=== PATIENT | female | born 1930 | race Caucasian/White ===

== ENCOUNTER 2016-07-11 09:38 | Emergency (ER) | payer MEDICARE, BC ==
--- NOTE | ~2016-07-11 | EKG ---
PATIENT: FARZAD REICH UNIT #: [id number] Ventricular Rate: 52 BPM Atrial Rate: 52 BPM P-R Interval: 142 ms QRS Duration: 84 ms Q-T Interval: 454 ms QTC Calculation(Bezet): 422 ms P [place]: 42 degrees Calculated R [place]: -30 degrees Calculated T [place]: 9 degrees Diagnosis Line: Sinus bradycardia Diagnosis Line: Left axis deviation Diagnosis Line: Abnormal ECG Diagnosis Line: No previous ECGs available Diagnosis Line: Confirmed by DIANE LAZCANO MD ([id number]) on 07/14/2016 Diagnosis Line: 11:11:32 PM INTERPRETING MD: NENO LUO
[~2016-07-11 09:38] MED LIST: ATARAX PO; BENTYL PO; BENTYL20 MG PO; FLAGYL PO; LEVOFLOXACIN500 MG; NEXIUM PO; NO MEDICATIONS; PREDNISONE50 MG PO; PYRIDIUM; REGLAN10 MG PO; ZOFRAN ODT PO; ZOFRAN ODT4 MG; ZOFRAN ODT4 MG PO; ZOFRAN PO
[2016-07-11 09:49] LABS: BASOPHIL# 0.1 X10e3 (0-0.3); BASOPHIL% 0.8 % (0-2.5); EOSINOPHIL# 0.1 X10e3 (0-0.7); EOSINOPHIL% 0.7 % (0.0-7.0); HEMATOCRIT 42.5 % (35.0-45.0); LYMPHOCYTE% 11.7 % (17.0-45.0); MEAN CELL VOLUME 90.3 FL (83-96); MEAN CORPUSCULAR HEMOGLOBIN 29.7 PG (28-34); MEAN CORPUSCULAR HGB CONC 32.9 g/dL (30-36); MEAN PLATELET VOLUME 7.7 FL (6.5-11.5); MONOCYTE# 0.6 X10e3 (0-1.0); MONOCYTE% 7.2 % (3.0-12.0); NEUTROPHIL# 6.5 X10e3 (1.5-7.1); NEUTROPHIL% 79.6 % (40-75); PLATELET COUNT 274 X10e3 (140-420); RED BLOOD COUNT 4.71 X10e (3.90-5.30); RED CELL DISTRIBUTION WIDTH 13.5 % (11.0-15.5); WHITE BLOOD COUNT 8.1 X10e3 (4.0-10.5)
[2016-07-11 09:55] LABS: DIFF IND NO
[2016-07-11 10:07] LABS: POC - CKMB 1.1 ng/mL (0.0-7.9); POC - MYOGLOBIN 65.6 ng/mL (0.0-169.0); POC - TROPONIN <0.05 ng/mL (<=0.05)
[2016-07-11 10:10] LABS: ALBUMIN SERUM 4.1 g/dL (3.5-5.0); BILIRUBIN, DIRECT 0.1 mg/dL (0.0-0.2); BILIRUBIN,INDIRECT 0.8 mg/dL (0.0-0.9); BILIRUBIN,TOTAL 0.9 mg/dL (0.2-2.0); BUN/CREATININE RATIO 17.5; CALCIUM SERUM 9.1 mg/dL (8.4-10.2); CREATININE SERUM 0.8 mg/dL (0.6-1.4); GLOM FILT RATE Estimated 67.3 mL/min (>60); POTASSIUM 3.7 mmol/L (3.5-5.1); PROTEIN TOTAL SERUM 7.3 g/dL (6.0-8.3)
[2016-07-11 11:09] LABS: URINE APPEARANCE CLEAR; URINE BILIRUBIN NEG (NEG); URINE BLOOD NEG (NEG); URINE COLOR YELLOW; URINE GLUCOSE NEG (NORM); URINE KETONE NEG (NEG); URINE NITRATE NEG (NEG); URINE PROTEIN NEG (NEG); URINE SPECIFIC GRAVITY <=1.005 (1.003-1.035); URINE UROBILINOGEN 0.2 MG/DL (NORM)
[2016-07-11 11:11] LABS: MICRO INDICATED? NO; URINE LEUKOCYTE ESTERASE NEG (NEG)
== END 2016-07-11 11:51 | disposition home or self-care (01) ==
LOC: SED 09:38
PROVIDERS: Emergency Medicine
DX: R11.0 Nausea (principal); F41.9 Anxiety disorder, unspecified; Z90.710 Acquired absence of both cervix and uterus; Z90.89 Acquired absence of other organs; Z79.899 Other long term (current) drug therapy; Z88.0 Allergy status to penicillin; Z88.2 Allergy status to sulfonamides; Z88.8 Allergy status to other drugs, medicaments and biological substances
CPT/HCPCS: 36415; 80048; 80076; 81003; 82150; 82553; 83605; 83690; 83874; 84484; 85025; 93005; 96374; 96375; 96376; 99284; J2270; J2405

== ENCOUNTER 2016-07-18 11:31 | Emergency (ER) | payer MEDICARE, BC ==
--- NOTE | ~2016-07-18 | CT2 ---
[facility] A Service of [facility] / [facility] RADIOLOGY TEXT RESULTS PATIENT: FARZAD REICH LOCATION: [facility] : 31 UNIT #: [id number] AGE: [address]: Titus Dasilva MD SEX: F ORDER DR: [id number] [facility] [address] [place], [place] [address] [id number] E MR#: [id number] #: [id number] NAME: FARZAD REICH. : 1930 SEX: F STUDY DATE/TIME: 07/18/2016 13:22 UNIT: [facility] ROOM: STUDY DESCRIPTION: CT Abd and Pelv W Cont Attending Physician: Titus Dasilva M.D. Ordering Physician: Titus Dasilva M.D. Primary Care Physician: Lavon Montana M.D. MEDICAL IMAGING REPORT This report is preliminary unless electronic signature is present EXAM CT abdomen and pelvis, 07/18/2016. HISTORY Weakness, back and rib pain, nausea. Prior history includes appendectomy, cholecystectomy, hysterectomy, hernia surgery, diverticulitis, anxiety. TECHNIQUE CT abdomen and pelvis performed with intravenous administration of 100 mL Isovue-370. Enteric contrast also administered. This CT exam was performed with one or more of the following radiation dose reduction techniques: automatic exposure control, adjustment of mA and/or kV according to patient size, and iterative reconstruction. COMPARISON Noncontrast enhanced examination 04/23/2016. FINDINGS Stable mild cardiac enlargement. No acute disease at the lung bases. Liver unremarkable. Status post cholecystectomy. Spleen, pancreas, adrenal glands unremarkable. Moderate to marked bilateral pyelocaliectasis. No change from studies dating to November 2015. No perinephric inflammatory change. No fluid collection. No renal calculi. Ureters normal in caliber. Appearance favors chronic ureteropelvic junction stenosis. CT PELVIS: No inguinal adenopathy. Status post hysterectomy. No suspicious adnexal structures are seen. Appears to be some laxity of the pelvic floor. No pelvic or retroperitoneal adenopathy. The distal esophagus, stomach, small bowel unremarkable. Status post appendectomy by history. Colon is notable for extensive left hemicolon diverticulosis. [facility] A Service of [facility] RADIOLOGY TEXT RESULTS PATIENT: FARZAD REICH LOCATION: [facility] : 31 UNIT #: [id number] AGE: [address]: Titus Dasilva MD SEX: F ORDER DR: There is mild mural thickening in the sigmoid colon without adjacent acute inflammatory change. No free air or abscess. The mural thickening is more pronounced than on the prior examination. Similar in appearance to an examination dated 11/24/2015. This might simply be a reflection of muscular hypertrophy in the context of marked diverticulosis. Possibility of very mild diverticulitis could be considered. Weight should be given the clinical assessment. The vascular structures show atherosclerotic arterial calcifications. The aorta is somewhat tortuous in keeping with the patient's thoracolumbar scoliosis. These are stable findings. Degenerative changes in the spine. No acute appearing abnormality. IMPRESSION 1. The patient has extensive left hemicolon diverticulosis most pronounced in the sigmoid colon. No focally inflamed diverticulum is seen. There is no pericolonic inflammatory change, fluid collection, free air, or abscess. However, the sigmoid colon shows mild generalized mural prominence, again without associated adjacent inflammatory change. This is more pronounced than in April 2016 but similar to a study dated 11/24/2015. The mild prominence could be a reflection of muscular hypertrophy in the context of extensive diverticulosis. Possibility of very mild diverticulitis could be considered in the appropriate clinical setting. Weight should be given the clinical assessment. No eccentric focal mass lesion is seen. Colon and small bowel otherwise unremarkable. 2. Stable appearance of moderate to marked bilateral pyelocaliectasis without ureteral dilatation and with no acute perinephric findings. No change from 2016. 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 3. Status post cholecystectomy. 4. Mild cardiac enlargement. Stable. 5. Scoliosis. 6. Pelvic floor laxity. 7. Status post hysterectomy. Dictated by... Brent Robins M.D. THIS IS AN ELECTRONICALLY VERIFIED REPORT Brent Robins M.D. at 07/19/2016 1:54 PM MIK/funmilayo TD: 07/18/2016 14:19 JOB #: [id number] MEDICAL IMAGING REPORT Page 1 of 1 COPY
--- NOTE | ~2016-07-18 | EKG ---
PATIENT: FARZAD REICH UNIT #: [id number] Ventricular Rate: 48 BPM Atrial Rate: 48 BPM P-R Interval: 166 ms QRS Duration: 84 ms Q-T Interval: 460 ms QTC Calculation(Bezet): 410 ms P [place]: 56 degrees Calculated R [place]: -21 degrees Calculated T [place]: 23 degrees Diagnosis Line: Sinus bradycardia Diagnosis Line: Otherwise normal ECG Diagnosis Line: When compared with ECG of 11-JUL-2016 09:44, Diagnosis Line: No significant change was found Diagnosis Line: Confirmed by DIANE LAZCANO MD ([id number]) on 07/18/2016 Diagnosis Line: 4:42:43 PM INTERPRETING MD: NENO LUO
[2016-07-18 11:49] LABS: POC - CKMB <1.0 ng/mL (0.0-7.9); POC - TROPONIN <0.05 ng/mL (<=0.05)
[2016-07-18 11:54] LABS: BASOPHIL# 0.1 X10e3 (0-0.3); EOSINOPHIL% 0.7 % (0.0-7.0); HEMATOCRIT 42.4 % (35.0-45.0); HEMOGLOBIN 13.8 gm/dL (12.0-16.0); LYMPHOCYTE# 1.1 X10e3 (1.0-3.5); LYMPHOCYTE% 17.4 % (17.0-45.0); MEAN CELL VOLUME 90.1 FL (83-96); MEAN CORPUSCULAR HEMOGLOBIN 29.4 PG (28-34); MEAN CORPUSCULAR HGB CONC 32.6 g/dL (30-36); MONOCYTE# 0.5 X10e3 (0-1.0); MONOCYTE% 8.1 % (3.0-12.0); NEUTROPHIL# 4.6 X10e3 (1.5-7.1); NEUTROPHIL% 72.8 % (40-75); PLATELET COUNT 259 X10e3 (140-420); RED BLOOD COUNT 4.71 X10e (3.90-5.30); RED CELL DISTRIBUTION WIDTH 13.9 % (11.0-15.5); WHITE BLOOD COUNT 6.4 X10e3 (4.0-10.5)
[2016-07-18 12:07] LABS: DIFF IND NO
[2016-07-18 12:33] LABS: ALBUMIN SERUM 3.9 g/dL (3.5-5.0); BILIRUBIN,TOTAL 0.8 mg/dL (0.2-2.0); CALCIUM SERUM 9.2 mg/dL (8.4-10.2); CREATININE SERUM 0.7 mg/dL (0.6-1.4); POTASSIUM 3.7 mmol/L (3.5-5.1); PROTEIN TOTAL SERUM 7.2 g/dL (6.0-8.3)
== END 2016-07-18 14:25 | disposition home or self-care (01) ==
LOC: CED 11:31
PROVIDERS: Emergency Medicine
DX: R19.7 Diarrhea, unspecified (principal); R53.83 Other fatigue; F41.9 Anxiety disorder, unspecified; Z90.49 Acquired absence of other specified parts of digestive tract; Z90.710 Acquired absence of both cervix and uterus; Z88.0 Allergy status to penicillin; Z88.2 Allergy status to sulfonamides; Z88.6 Allergy status to analgesic agent; Z88.8 Allergy status to other drugs, medicaments and biological substances
CPT/HCPCS: 36415; 74177; 80053; 82150; 82553; 83690; 84484; 85025; 93005; 96361; 96374; 96375; 99284; C9113; J2405; Q9967

== ENCOUNTER 2016-10-09 08:20 | Emergency (ER) | payer MEDICARE, BC ==
--- NOTE | ~2016-10-09 | CT2 ---
[facility] A Service of [facility] & [facility] RADIOLOGY TEXT RESULTS PATIENT: FARZAD REICH LOCATION: SED : 31 UNIT #: [id number] AGE: [address]: Titus Dasilva MD SEX: F ORDER DR: [id number] [place] [id number] E MR#: [id number] Acc #: [id number] NAME: FARZAD REICH : 1930 SEX: F STUDY DATE/TIME: 10/09/2016 9:57 UNIT: SED ROOM: STUDY DESCRIPTION: CT Abd and Pelv W Cont Attending Physician: Titus Dasilva M.D. Ordering Physician: Titus Dasilva M.D. Primary Care Physician: Lavon Montana M.D. MEDICAL IMAGING REPORT This report is preliminary unless electronic signature is present. EXAM CT abdomen and pelvis HISTORY Left-sided abdominal pain and nausea, diarrhea for [address] of the abdomen and pelvis with p.o. and IV contrast (100 mL Isovue 370 IV contrast). Coronal and sagittal reconstructions were obtained. This CT exam was performed with one or more of the following radiation dose reduction techniques: automatic exposure control, adjustment of mA and/or kV according to patient size, and iterative reconstruction. COMPARISON CT abdomen and pelvis 07/18/216 FINDINGS The descending thoracic aorta is tortuous. There are some linear scarring or atelectasis in both lung bases. The patient has background emphysema. The solid abdominal organs are unchanged. There is mild atrophy of the pancreas. Multiple parapelvic cysts in the kidneys are similar to the prior study. The bowel is not dilated. There has previously been prior Ana fundoplication at the EG junction. There is extensive colonic diverticulosis in the left side of the colon. There is a small supraumbilical anterior abdominal hernia along the midline. This is presumably an incisional hernia. No complicating features identified. The gallbladder is surgically absent. The abdominal aorta is normal in caliber. Pelvis: Bladder is unremarkable. No enlarged pelvic or inguinal lymph nodes. The ovaries are either atrophic or surgically absent. The uterus STS. [facility] A Service of [facility] & [facility] RADIOLOGY TEXT RESULTS PATIENT: FARZAD REICH LOCATION: [facility] : 31 UNIT #: [id number] AGE: [address]: Titus Dasilva MD SEX: F ORDER DR: is surgically absent. IMPRESSION 1. No acute findings in the abdomen or pelvis. 2. Extensive chronic diverticulosis. No evidence of an acute diverticulitis. 3. Small midline incisional hernia without complicating features. Dictated by... Mike Pichardo M.D. THIS IS AN ELECTRONICALLY VERIFIED REPORT Mike Pichardo M.D. at 10/09/2016 2:27 PM C/andrew TD: 10/09/2016 13:12 JOB #: [id number] MEDICAL IMAGING REPORT Page 1 of 1
[2016-10-09 09:04] LABS: URINE APPEARANCE CLEAR; URINE BILIRUBIN NEG (NEG); URINE COLOR YELLOW; URINE GLUCOSE NEG (NORM); URINE KETONE NEG (NEG); URINE LEUKOCYTE ESTERASE NEG (NEG); URINE NITRATE NEG (NEG); URINE PROTEIN NEG (NEG); URINE SPECIFIC GRAVITY <=1.005 (1.003-1.035); URINE UROBILINOGEN 0.2 MG/DL (NORM)
[2016-10-09 09:08] LABS: BASOPHIL# 0.1 X10e3 (0-0.3); BASOPHIL% 1.4 % (0-2.5); EOSINOPHIL# 0.1 X10e3 (0-0.7); EOSINOPHIL% 1.3 % (0.0-7.0); HEMATOCRIT 38.5 % (35.0-45.0); LYMPHOCYTE# 0.7 X10e3 (1.0-3.5); LYMPHOCYTE% 13.2 % (17.0-45.0); MEAN CELL VOLUME 88.7 FL (83-96); MEAN CORPUSCULAR HEMOGLOBIN 29.9 PG (28-34); MEAN CORPUSCULAR HGB CONC 33.7 g/dL (30-36); MEAN PLATELET VOLUME 7.7 FL (6.5-11.5); MONOCYTE# 0.5 X10e3 (0-1.0); NEUTROPHIL# 3.9 X10e3 (1.5-7.1); NEUTROPHIL% 75.1 % (40-75); PLATELET COUNT 227 X10e3 (140-420); RED BLOOD COUNT 4.34 X10e (3.90-5.30); RED CELL DISTRIBUTION WIDTH 13.6 % (11.0-15.5); WHITE BLOOD COUNT 5.1 X10e3 (4.0-10.5)
[2016-10-09 09:19] LABS: DIFF IND NO
[2016-10-09 09:20] LABS: MICRO INDICATED? NO; URINE BLOOD NEG (NEG)
[2016-10-09 09:35] LABS: ALBUMIN SERUM 3.7 g/dL (3.5-5.0); BILIRUBIN, DIRECT 0.1 mg/dL (0.0-0.2); BILIRUBIN,INDIRECT 0.7 mg/dL (0.0-0.9); BILIRUBIN,TOTAL 0.8 mg/dL (0.2-2.0); CALCIUM SERUM 8.6 mg/dL (8.4-10.2); CREATININE SERUM 0.7 mg/dL (0.6-1.4); POTASSIUM 3.4 mmol/L (3.5-5.1); PROTEIN TOTAL SERUM 6.7 g/dL (6.0-8.3)
== END 2016-10-09 10:37 | disposition home or self-care (01) ==
LOC: SED 08:20
PROVIDERS: Emergency Medicine
DX: R10.12 Left upper quadrant pain (principal); R10.32 Left lower quadrant pain; F41.9 Anxiety disorder, unspecified; Z90.49 Acquired absence of other specified parts of digestive tract; Z90.710 Acquired absence of both cervix and uterus; Z88.0 Allergy status to penicillin; Z88.2 Allergy status to sulfonamides; Z88.8 Allergy status to other drugs, medicaments and biological substances
CPT/HCPCS: 36415; 74177; 80048; 80076; 81003; 82150; 83690; 85025; 96361; 96374; 96375; 99284; J2405; J3010; Q9967

== ENCOUNTER 2016-11-22 07:20 | Emergency (ER) | payer MEDICARE, BC ==
--- NOTE | ~2016-11-22 | EKG ---
PATIENT: FARZAD REICH UNIT #: [id number] Ventricular Rate: 66 BPM Atrial Rate: 66 BPM P-R Interval: 144 ms QRS Duration: 82 ms Q-T Interval: 422 ms QTC Calculation(Bezet): 442 ms P [place]: 74 degrees Calculated R [place]: -32 degrees Calculated T [place]: 19 degrees Diagnosis Line: Normal sinus rhythm Diagnosis Line: Left axis deviation Diagnosis Line: Abnormal ECG Diagnosis Line: When compared with ECG of 18-JUL-2016 10:57, Diagnosis Line: No significant change was found Diagnosis Line: Confirmed by REMEDIOS RAMOS MD ([id number]) on Diagnosis Line: 11/24/2016 4:04:30 PM INTERPRETING MD: RICHARD LUO
--- NOTE | ~2016-11-22 | CT2 ---
[facility] A Service of [facility] / [facility] RADIOLOGY TEXT RESULTS PATIENT: FARZAD REICH LOCATION: SED : 31 UNIT #: [id number] AGE: [address]: Ashley Carter MD SEX: F ORDER DR: [id number] [address] [address] [id number] E MR#: [id number] Acc #: [id number] NAME: FARZAD REICH : 1930 SEX: F STUDY DATE/TIME: 11/22/2016 9:34 UNIT: SED ROOM: STUDY DESCRIPTION: CT Abd and Pelv W Cont Attending Physician: Ashley Carter M.D. Ordering Physician: Ashley Carter M.D. Primary Care Physician: Lavon Montana M.D. MEDICAL IMAGING REPORT This report is preliminary unless electronic signature is present. EXAM CT of the abdomen and pelvis with contrast INDICATION Abdominal cramping, nausea, vomiting and diarrhea for a few days. TECHNIQUE Axial CT images were obtained from the dome of the diaphragm through the symphysis pubis following the administration of oral and intravenous contrast material. This CT examination was performed with one or more of the following radiation dose reduction techniques: automatic exposure control, adjustment of mA and/or kV according to patient size, and iterative reconstruction. FINDINGS Images through the lung bases demonstrate some tree-in-bud infiltrate within the right middle lobe new when compared to the October 09, 2016 examination. There is also some scarring seen within the lingula. No focal hepatic lesions are seen. Gallbladder is surgically absent. This patient has some apparent wall thickening at the GE junction of uncertain clinical significance. This may simply reflect some prominent folds at the cardia. It appears unchanged when compared to exams dating back to November 2015 so I suspect it is probably a benign finding. Certainly correlation with any evidence of gastritis/esophagitis is suggested. Patient's thoracic aorta is very tortuous. Adrenal glands appear unremarkable. Pancreas is mildly atrophic. A few scattered granulomata are seen within the spleen. Fullness is identified within the collecting systems bilaterally. It is unclear if this appearance is related to multiple parapelvic cysts or to hydronephrosis related to bilateral UPJ obstructions. However, the appearance has been stable since at least November 2015 and the distal ureters are certainly decompressed. Uterus is surgically absent. Urinary bladder appears unremarkable. This [facility] A Service of [facility] RADIOLOGY TEXT RESULTS PATIENT: FARZAD REICH LOCATION: [facility] : 31 UNIT #: [id number] AGE: [address]: Ashley Carter MD SEX: F ORDER DR: patient does have colonic diverticulosis without any convincing evidence of diverticulitis. There is lumbar scoliosis with convexity to the left. No free fluid or adenopathy is seen within the pelvis. There is no evidence of mechanical bowel obstruction. Patient does have a complex fat-containing ventral hernia. Review of bony windows demonstrates osteopenia and again lumbar scoliosis with convexity to the left. There is some stenosis noted at the origin of the celiac axis which is probably moderate in severity. IMPRESSION 1. No definite acute intraabdominal or intrapelvic process is seen. This patient is again noted to have fullness within the renal collecting systems bilaterally which I think may actually reflect bilateral parapelvic cysts, although certainly hydronephrosis related to bilateral UPJ obstructions is not excluded. Of note, this finding has been present since exams dating back to at least November 2015 and has not progressed. 2. Fullness noted at the GE junction may reflect some redundant folds of the cardia. Certainly correlation with any history of gastritis or esophagitis is suggested. Again this appearance is stable when compared to November 2015. 3. Colonic diverticulosis without any evidence of diverticulitis. 4. Tree-in-bud infiltrate identified within the right middle lobe new when compared to September 2016 and favored to be infectious or inflammatory in nature. Please see the body of the report for any other additional incidental findings. Dictated by... Yesenia House M.D. THIS IS AN ELECTRONICALLY VERIFIED REPORT Yesenia House M.D. at 11/22/2016 2:07 PM AFF/quynh TD: 11/22/2016 12:07 JOB #: [id number] MEDICAL IMAGING REPORT Page 1 of 1
[2016-11-22] MEDS ORDERED: ZOFRAN PO (07:27)
[2016-11-22] MEDS ORDERED: DIARRHEA MEDICATION PO (07:28)
[2016-11-22 07:58] LABS: URINE SOURCE CLEAN CATCH
[2016-11-22 08:03] LABS: BASOPHIL# 0.1 X10e3 (0-0.3); EOSINOPHIL# 0.1 X10e3 (0-0.7); EOSINOPHIL% 1.9 % (0.0-7.0); LYMPHOCYTE# 1.2 X10e3 (1.0-3.5); LYMPHOCYTE% 19.8 % (17.0-45.0); MEAN CELL VOLUME 89.9 FL (83-96); MEAN CORPUSCULAR HGB CONC 33.4 g/dL (30-36); MEAN PLATELET VOLUME 7.7 FL (6.5-11.5); MONOCYTE# 0.6 X10e3 (0-1.0); MONOCYTE% 9.2 % (3.0-12.0); NEUTROPHIL# 4.2 X10e3 (1.5-7.1); NEUTROPHIL% 68.1 % (40-75); PLATELET COUNT 250 X10e3 (140-420); RED BLOOD COUNT 4.67 X10e (3.90-5.30); WHITE BLOOD COUNT 6.2 X10e3 (4.0-10.5)
[2016-11-22 08:03] LABS: URINE APPEARANCE CLEAR; URINE BILIRUBIN NEG (NEG); URINE BLOOD NEG (NEG); URINE COLOR YELLOW; URINE GLUCOSE NEG (NORM); URINE KETONE NEG (NEG); URINE LEUKOCYTE ESTERASE TRACE (NEG); URINE NITRATE NEG (NEG); URINE PROTEIN NEG (NEG); URINE SPECIFIC GRAVITY <=1.005 (1.003-1.035); URINE UROBILINOGEN 0.2 MG/DL (NORM)
[2016-11-22 08:04] LABS: DIFF IND NO
[2016-11-22 08:11] LABS: POC - CKMB <1.0 ng/mL (0.0-7.9); POC - TROPONIN <0.05 ng/mL (<=0.05)
[2016-11-22 08:19] LABS: ALBUMIN SERUM 3.8 g/dL (3.5-5.0); ALKALINE PHOSPHATASE 68 U/L (32-92); ALT (SGPT) 14 U/L (10-40); AMYLASE 18 U/L (0-46); AST (SGOT) 19 U/L (10-42); BILIRUBIN,TOTAL 0.8 mg/dL (0.2-2.0); BLOOD UREA NITROGEN 11 mg/dL (9-23); BUN/CREATININE RATIO 13.75; CALCIUM SERUM 8.9 mg/dL (8.4-10.2); CARBON DIOXIDE 28 mmol/L (22-31); CHLORIDE 106 mmol/L (100-111); CREATININE SERUM 0.8 mg/dL (0.6-1.4); GLOM FILT RATE Estimated 67.3 mL/min (>60); GLUCOSE FASTING 95 mg/dL (70-110); LIPASE 27 U/L (22-51); POTASSIUM 3.5 mmol/L (3.5-5.1); PROTEIN TOTAL SERUM 6.7 g/dL (6.0-8.3); SODIUM 141 mmol/L (135-145)
[2016-11-22 08:29] LABS: MICRO INDICATED? YES
[2016-11-22 08:29] LABS: BILIRUBIN, DIRECT <0.1 mg/dL (0.0-0.2); BILIRUBIN,INDIRECT 0.7 mg/dL (0.0-0.9)
[2016-11-22 08:32] LABS: CULTURE INDICATED? NO; URINE BACTERIA NEG (NEG); URINE RBC 0-2 /[HPF] (0-2); URINE WBC 0-2 /[HPF] (0-5)
[2016-11-22 09:55] LABS: POC - CKMB <1.0 ng/mL (0.0-7.9); POC - TROPONIN <0.05 ng/mL (<=0.05)
== END 2016-11-22 11:02 | disposition home or self-care (01) ==
LOC: SED 07:20
PROVIDERS: Student in an Organized Health Care Education/Training Program
DX: K52.9 Noninfective gastroenteritis and colitis, unspecified (principal); R53.1 Weakness; Z90.710 Acquired absence of both cervix and uterus; Z88.0 Allergy status to penicillin; Z88.8 Allergy status to other drugs, medicaments and biological substances; M54.9 Dorsalgia, unspecified; M89.29 Other disorders of bone development and growth, multiple sites; Z98.890 Other specified postprocedural states; Z88.2 Allergy status to sulfonamides
CPT/HCPCS: 36415; 74177; 80048; 80076; 81003; 82150; 82553; 83690; 83880; 84484; 85025; 93005; 96361; 96374; 96375; 99284; C9113; J2405; Q9967

== ENCOUNTER 2016-12-22 10:10 | Emergency (ER) | payer MEDICARE, BC ==
--- NOTE | ~2016-12-22 | CT4 ---
[facility] A Service [facility] RADIOLOGY TEXT RESULTS PATIENT: FARZAD REICH LOCATION: [facility] : 32 UNIT #: [id number] AGE: [address]: Ashley Carter MD SEX: F ORDER DR: [id number] [place] [id number] E MR#: [id number] Acc #: [id number] NAME: FARZAD REICH : 1930 SEX: F STUDY DATE/TIME: 12/22/2016 11:16 UNIT: SED ROOM: STUDY DESCRIPTION: CT Abd and Pelv Wo Cont Attending Physician: Ashley Carter M.D. Ordering Physician: Ashley Carter M.D. Primary Care Physician: Lavon Montana M.D. MEDICAL IMAGING REPORT This report is preliminary unless electronic signature is present. EXAM CT abdomen and pelvis without contrast INDICATION Nausea, abdominal pain and diarrhea for [address] of the abdomen and pelvis was performed without contrast. Coronal and sagittal reformatted images obtained. This CT exam was performed with one or more of the following radiation dose reduction techniques: automatic exposure control, adjustment of mA and/or kV according to patient size, and iterative reconstruction. COMPARISON 11/22/2016 FINDINGS The lung bases are clear. The liver is unremarkable. Cholecystectomy. The spleen is unremarkable. Stable bilateral renal parapelvic cysts versus chronic UPJ obstructions. The adrenal glands are unremarkable. The pancreas is unremarkable. Stable fat-containing ventral abdominal wall hernia. No evidence for bowel obstruction. PELVIS: Extensive diverticulosis of the sigmoid colon. No definite acute diverticulitis, however, mild diverticulitis cannot entirely be excluded due to the extent of the diverticulosis. Appendectomy. No free fluid. Bone windows unremarkable. IMPRESSION 1. There is extensive sigmoid diverticulosis. There is no obvious CT finding of acute diverticulitis. However, CT occult diverticulitis cannot entirely be excluded due to the extent of the diverticulosis. [facility] A Service [facility] RADIOLOGY TEXT RESULTS PATIENT: FARZAD REICH LOCATION: [facility] #: [id number] : 32 UNIT #: [id number] AGE: [address]: Ashley Carter MD SEX: F ORDER DR: 2. No evidence for bowel obstruction. 3. No evidence for free fluid or fluid collection. 4. Cholecystectomy and appendectomy. Dictated by... Godfrey Redding M.D. THIS IS AN ELECTRONICALLY VERIFIED REPORT Godfrey Redding M.D. at 12/23/2016 7:09 AM SHAUN/lyly TD: 12/22/2016 11:41 JOB #: [id number] MEDICAL IMAGING REPORT Page 1 of 1
[~2016-12-22 10:10] MED LIST changes: +DIARRHEA MEDICATION PO
[2016-12-22] MEDS ORDERED: BENTYL10 MG PO (10:12)
[2016-12-22 10:43] LABS: BASOPHIL% 0.7 % (0-2.5); EOSINOPHIL% 0.7 % (0.0-7.0); HEMATOCRIT 41.4 % (35.0-45.0); HEMOGLOBIN 14.3 gm/dL (12.0-16.0); LYMPHOCYTE# 0.9 X10e3 (1.0-3.5); LYMPHOCYTE% 13.4 % (17.0-45.0); MEAN CELL VOLUME 89.3 FL (83-96); MEAN CORPUSCULAR HEMOGLOBIN 30.7 PG (28-34); MEAN CORPUSCULAR HGB CONC 34.4 g/dL (30-36); MEAN PLATELET VOLUME 7.5 FL (6.5-11.5); MONOCYTE# 0.6 X10e3 (0-1.0); NEUTROPHIL# 5.3 X10e3 (1.5-7.1); NEUTROPHIL% 77.2 % (40-75); PLATELET COUNT 264 X10e3 (140-420); RED BLOOD COUNT 4.64 X10e (3.90-5.30); WHITE BLOOD COUNT 6.9 X10e3 (4.0-10.5)
[2016-12-22 10:45] LABS: DIFF IND NO
[2016-12-22 11:00] LABS: ALBUMIN SERUM 4.3 g/dL (3.5-5.0); BILIRUBIN, DIRECT 0.2 mg/dL (0.0-0.2); BILIRUBIN,INDIRECT 0.9 mg/dL (0.0-0.9); BILIRUBIN,TOTAL 1.1 mg/dL (0.2-2.0); BUN/CREATININE RATIO 13.33; CALCIUM SERUM 8.8 mg/dL (8.4-10.2); CREATININE SERUM 0.9 mg/dL (0.6-1.4); GLOM FILT RATE Estimated 58.3 mL/min (>60); POTASSIUM 3.6 mmol/L (3.5-5.1); PROTEIN TOTAL SERUM 7.2 g/dL (6.0-8.3)
[2016-12-22 11:01] LABS: URINE SOURCE CLEAN CATCH
[2016-12-22 11:03] LABS: URINE APPEARANCE CLEAR; URINE BILIRUBIN NEG (NEG); URINE BLOOD NEG (NEG); URINE COLOR YELLOW; URINE GLUCOSE NEG (NORM); URINE KETONE NEG (NEG); URINE LEUKOCYTE ESTERASE 1+ (NEG); URINE NITRATE NEG (NEG); URINE PROTEIN NEG (NEG); URINE UROBILINOGEN 0.2 MG/DL (NORM)
[2016-12-22 11:18] LABS: MICRO INDICATED? YES
[2016-12-22 11:21] LABS: CULTURE INDICATED? NO; URINE BACTERIA NEG (NEG); URINE RBC 0-2 /[HPF] (0-2); URINE WBC 0-2 /[HPF] (0-5)
== END 2016-12-22 12:55 | disposition home or self-care (01) ==
LOC: SED 10:10
PROVIDERS: Student in an Organized Health Care Education/Training Program
DX: R10.32 Left lower quadrant pain (principal); R11.0 Nausea; R19.7 Diarrhea, unspecified; M54.9 Dorsalgia, unspecified; Z88.0 Allergy status to penicillin; Z88.2 Allergy status to sulfonamides; Z90.49 Acquired absence of other specified parts of digestive tract; Z88.8 Allergy status to other drugs, medicaments and biological substances
CPT/HCPCS: 36415; 74176; 80048; 80076; 81003; 82150; 83690; 85025; 96361; 96365; 96375; 99284; J2270; J2550